=== PATIENT | male | born 1960 | race Two or more races ===

== ENCOUNTER 2016-12-19 01:10 | Emergency (ER) | payer OTHER ==
[~2016-12-19] VITALS: Ht 167.6 cm; Wt 90.7 kg
[2016-12-19] MEDS ORDERED: FLUOXETINE (01:34)
[2016-12-19] MEDS ORDERED: STATIN (01:34)
[2016-12-19] MEDS ORDERED: NEOMY/POLYMYX B/HC OTIC SUSP 10 ML BOTTLE OT ONE (01:45)
--- NOTE | 2016-12-19 01:53 | NUR ---
Patient discharged to home in stable conditon. Written and verbal after care instructions given. Patient verbalizes understanding of instructions.
[2016-12-19] MEDS ORDERED: NEOMY/POLYMYX B/HC OTIC SUSP 10 ML BOTTLE ONE (01:58)
== END 2016-12-19 01:53 | disposition home or self-care (01) ==
LOC: ER 01:22
DX: H60.91 Unspecified otitis externa, right ear (principal); E78.00 Pure hypercholesterolemia, unspecified
CPT/HCPCS: A4663